=== PATIENT | female | born 1950 | race Caucasian/White ===

== ENCOUNTER 2018-08-09 14:32 | Emergency (ER) | payer MEDICARE, BC ==
[~2018-08-09] VITALS: Ht 162.6 cm; Wt 70.3 kg
--- NOTE | 2018-08-09 14:41 | NUR ---
BIB FRIEND C/O WORSENING SOB ON EXERTION. STATES SHE'S EXPERIENCED SIMILAR CONDITION OFF AND ON BEFORE. PT IS AOX4, AMBULATORY, VSS, RR EVEN AND UNLABORED. SKIN WARM, DRY, INTACT. DENIES DIZZINESS, WEAKNESS, N/V. NO ACUTE DISTRESS. DENIES PAIN. READY FOR EVAL.
--- NOTE | 2018-08-09 14:59 | NUR ---
CALLED DR [facility], LEFT A VOICE MAIL.
--- NOTE | 2018-08-09 15:01 | NUR ---
PHLEB AT BEDSIDE
[2018-08-09 15:09] LABS: BASOPHILS # (AUTO) 0.1 /CMM (0.0-0.2); BASOPHILS % (AUTO) 1.2 % (0.0-2.0); EOSINOPHILS % (AUTO) 0.1 % (0.0-6.0); HEMATOCRIT 36 % (33-45); HEMOGLOBIN 12.2 g/dL (11.5-14.8); LYMPHOCYTES # (AUTO) 2.4 /CMM (0.8-4.8); LYMPHOCYTES % (AUTO) 21.3 % (20.0-44.0); MEAN CORPUSCULAR HGB CONC 34 g/dl (31.0-36.0); MEAN CORPUSCULAR VOLUME 83 fL (82-100); MONOCYTES # (AUTO) 0.6 /CMM (0.1-1.30); MONOCYTES % (AUTO) 5.1 % (2.0-12.0); NEUTROPHILS # (AUTO) 8.1 /CMM (1.8-8.9); NEUTROPHILS % (AUTO) 72.3 % (43.0-81.0); PLATELET COUNT (AUTO) 285 /CMM (150-450); RED BLOOD CELL COUNT(AUTO) 4.37 MIL/uL (4.0-5.2); WHITE BLOOD COUNT (AUTO) 11.2 K/uL (4.3-11.0)
[2018-08-09 15:19] LABS: CALCIUM, SERUM 8.7 mg/dL (8.5-10.1); CARBON DIOXIDE 29 mmol/L (21-32); CHLORIDE 102 mmol/L (98-107); CREATININE 0.5 mg/dL (0.6-1.3); GLUCOSE 91 mg/dL (74-106); POTASSIUM 3.5 mmol/L (3.5-5.1); SODIUM SERUM 138 mmol/L (136-145); UREA NITROGEN, BLOOD 11 mg/dL (7-18)
--- NOTE | 2018-08-09 15:24 | NUR ---
Note undone in EDM - 08/09/18 at 1534 by CHERYL BIB FRIEND C/O WORSENING SOB ON EXERTION. STATES SHE'S EXPERIENCED SIMILAR CONDITION OFF AND ON BEFORE. PT IS AOX4, AMBULATORY, VSS, RR EVEN AND UNLABORED. SKIN WARM, DRY, INTACT. DENIES DIZZINESS, WEAKNESS, N/V. NO ACUTE DISTRESS. DENIES PAIN. READY FOR EVAL.
[2018-08-09 15:31] LABS: B-TYPE NATRIURETIC PEPTIDE 1399 PG/ML (0-125)
--- NOTE | 2018-08-09 15:40 | NUR ---
Patient discharged to home in stable condition. Written and verbal after care instructions given. Patient verbalizes understanding of instruction.
[2018-08-09 15:41] VITALS: BP 126/78
== END 2018-08-09 15:44 | disposition home or self-care (01) ==
LOC: ER 14:34
DX: J21.9 Acute bronchiolitis, unspecified (principal); J45.909 Unspecified asthma, uncomplicated; L50.8 Other urticaria; G89.29 Other chronic pain; F10.10 Alcohol abuse, uncomplicated; Y90.9 Presence of alcohol in blood, level not specified; Z88.0 Allergy status to penicillin
CPT/HCPCS: 36415; 80048-TC; 83880; 84484-TC; 85025-TC